=== PATIENT | male | born 2000 | race Caucasian/White ===

== ENCOUNTER 2022-05-19 19:23 | Emergency (ER) | payer OTHER ==
[2022-05-19 19:49] VITALS: BP 119/70; PULSE 74; RESP 18; TEMP 98.2; BMI 29.8
[2022-05-19] MEDS ORDERED: ACETAMINOPHEN 500 MG TABLET (FP) PO ONE (20:02)
[2022-05-19] MEDS ORDERED: DIPHTH,PERTUSS(ACELL),TET 0.5 ML DISP.SYRIN IM ONE ×2 (20:03→20:13)
[2022-05-19] MEDS ORDERED: ACETAMINOPHEN 325 MG TABLET (FP) ONE (20:13)
[2022-05-19] MEDS ORDERED: BACITRACIN ZINC 15 GM TUBE TOPICAL OINTMENT ONE (21:34)
[2022-05-19] MEDS ORDERED: BACITRACIN ZINC 15 GM TUBE TOPICAL OINTMENT TP ONE (21:34)
== END 2022-05-19 21:55 | disposition home or self-care (01) ==
LOC: JERFT 19:23 → JER 19:23 → JERFT 21:55
PROC: 0HQGXZZ Repair Left Hand Skin, External Approach (ICD-10-PCS; principal; 2022-05-19)
PROC: 3E0234Z Introduction of Serum, Toxoid and Vaccine into Muscle, Percutaneous Approach (ICD-10-PCS; 2022-05-19)
DX: S61.412A Laceration without foreign body of left hand, initial encounter (principal); W25.XXXA Contact with sharp glass, initial encounter
CPT/HCPCS: 12002-25; 73110-TC-RT-FY; 73130-TC-RT-FY; 90471; 90715; 99283-25

== ENCOUNTER 2022-06-01 15:02 | Emergency (ER) | payer OTHER ==
[2022-06-01 15:13] VITALS: BP 124/78; PULSE 65; RESP 18; TEMP 98.4; BMI 30.7
== END 2022-06-01 15:52 | disposition home or self-care (01) ==
LOC: JERFT 15:02
DX: Z48.02 Encounter for removal of sutures (principal)
CPT/HCPCS: 99281-25

== ENCOUNTER 2022-08-09 13:39 | Emergency (ER) | payer OTHER ==
[2022-08-09 13:49] VITALS: BP 149/92; PULSE 77; RESP 18; TEMP 99; BMI 29.6
== END 2022-08-09 15:29 | disposition home or self-care (01) ==
LOC: JERFT 13:39
DX: S61.313A Laceration without foreign body of left middle finger with damage to nail, initial encounter (principal); W31.2XXA Contact with powered woodworking and forming machines, initial encounter
CPT/HCPCS: 99283-25